=== PATIENT | male | born 1965 | race Two or more races ===

== ENCOUNTER 2016-08-12 12:19 | Emergency (ER) | payer OTHER ==
--- NOTE | ~2016-08-12 | CR181 ---
[facility] A Service of [facility] RADIOLOGY TEXT RESULTS PATIENT: HORTENCIA TRIMBLE LOCATION: [facility] : 67 UNIT #: [id number] AGE: [address]: Criselda Evans SEX: M ORDER DR: [id number] [facility] [address] [place], [place] [address] [id number] E MR#: [id number] Acc #: [id number] NAME: HORTENCIA TRIMBLE : 1965 SEX: M STUDY DATE/TIME: 08/12/2016 13:50 UNIT: [facility] ROOM: STUDY DESCRIPTION: CR Lumbar Spine 2 or 3 Views Attending Physician: Criselda Evans Pa-C Ordering Physician: Carl Sin A.P.R.N. MEDICAL IMAGING REPORT This report is preliminary unless electronic signature is present EXAM Lumbar spine, 3 views COMPARISON None. INDICATIONS 51-year-old male with low back pain for 4 days. No known injury. FINDINGS There are hypoplastic ribs on the T12 vertebral body. There is levo-curvature of the lumbar spine, perhaps positional or due to muscle spasm. Faint calcium density seen in the left pelvis, possibly reflecting a phlebolith. No subluxation of the lumbar spine. Questionable disc height loss L5-S1, not well evaluated on this exam. IMPRESSION Levo-curvature of the lumbar spine, perhaps positional or reflective of scoliosis. There is also questionable disc height loss L5-S1. Exam is otherwise within normal limits, aside for a left pelvic calcification which may reflect a phlebolith. In an appropriate clinical setting, distal obstructing ureteral calculus cannot be excluded. Please note, the patient has a CT abdomen and pelvis ordered for later today and this would be better evaluated on that study. Dictated by... Romaine Neville M.D. THIS IS AN ELECTRONICALLY VERIFIED REPORT Romaine Neville M.D. at 08/17/2016 8:56 PM BLM/pcl [facility] A Service of [facility] RADIOLOGY TEXT RESULTS PATIENT: HORTENCIA TRIMBLE LOCATION: [facility] : [birth year] UNIT #: [id number] AGE: [address]: Criselda Evans SEX: M ORDER DR: TD: 08/12/2016 15:09 JOB #: [id number] MEDICAL IMAGING REPORT Page 1 of 1 COPY
--- NOTE | ~2016-08-12 | CT2 ---
[facility] A Service of [facility] RADIOLOGY TEXT RESULTS PATIENT: HORTENCIA TRIMBLE LOCATION: [place] : 67 UNIT #: [id number] AGE: [address]: Criselda Evans SEX: M ORDER DR: [id number] [place] [id number] [facility]. [place], [place] [address] [id number] E MR#: [id number] Acc #: [id number] NAME: HORTENCIA TRIMBLE : 1965 SEX: M STUDY DATE/TIME: 08/12/2016 15:21 UNIT: [facility] ROOM: STUDY DESCRIPTION: CT Abd and Pelv W Cont Attending Physician: Criselda Evans Pa-C Ordering Physician: Carl Sin A.P.R.N. Primary Care Physician: No Primary Care Physician MEDICAL IMAGING REPORT This report is preliminary unless electronic signature is present EXAM CT abdomen and pelvis with IV contrast. HISTORY Low back and abdomen pain for [address] exam was performed with one or more of the following radiation dose reduction techniques: automatic exposure control, adjustment of mA and/or kV according to patient size, and iterative reconstruction. FINDINGS CT abdomen and pelvis was performed with IV contrast. CT ABDOMEN. The liver, gallbladder, spleen, pancreas, kidneys, and adrenal glands are normal. No hydronephrosis. No bowel distension. No ascites or inflammatory stranding. Normal caliber abdominal aorta. CT PELVIS. No pelvic mass or fluid collection. Moderate amount of stool in the rectum. No adenopathy or inflammatory stranding. Urinary bladder is unremarkable. IMPRESSION Negative CT abdomen and pelvis with IV contrast. Dictated by... Alonso Paula M.D. [facility] A Service of [facility] RADIOLOGY TEXT RESULTS PATIENT: HORTENCIA TRIMBLE LOCATION: [place] : 67 UNIT #: [id number] AGE: [address]: Criselda Evans SEX: M ORDER DR: THIS IS AN ELECTRONICALLY VERIFIED REPORT Alonso Paula M.D. at 08/12/2016 10:50 PM KAVIN/devin TD: 08/12/2016 18:58 JOB #: [id number] MEDICAL IMAGING REPORT Page 1 of 1 COPY
[2016-08-12 13:52] LABS: URINE SOURCE CLEAN CATCH
[2016-08-12 14:02] LABS: URINE APPEARANCE CLEAR; URINE BILIRUBIN NEG (NEG); URINE BLOOD TRACE (NEG); URINE COLOR DK YELLOW; URINE GLUCOSE NEG (NEG); URINE KETONE TRACE (NEG); URINE LEUKOCYTE ESTERASE NEG (NEG); URINE NITRATE NEG (NEG); URINE PROTEIN NEG (NEG); URINE SPECIFIC GRAVITY 1.029 (1.003-1.035)
[2016-08-12 14:05] LABS: BASOPHIL% 0.4 % (0-2.5); EOSINOPHIL# 0.1 X10e3 (0-0.7); EOSINOPHIL% 1.6 % (0.0-7.0); HEMATOCRIT 45.8 % (38.0-50.0); HEMOGLOBIN 15.5 gm/dL (13.0-16.0); LYMPHOCYTE# 1.3 X10e3 (1.0-3.5); MEAN CELL VOLUME 92.9 FL (83-96); MEAN CORPUSCULAR HEMOGLOBIN 31.4 PG (28-34); MEAN CORPUSCULAR HGB CONC 33.8 g/dL (30-36); MEAN PLATELET VOLUME 8.1 FL (6.5-11.5); MONOCYTE# 0.3 X10e3 (0-1.0); MONOCYTE% 5.6 % (3.0-12.0); NEUTROPHIL# 4.1 X10e3 (1.5-7.1); NEUTROPHIL% 69.4 % (40-75); PLATELET COUNT 189 X10e3 (140-420); RED BLOOD COUNT 4.93 X10e (3.90-5.60); RED CELL DISTRIBUTION WIDTH 13.6 % (11.0-15.5); WHITE BLOOD COUNT 5.8 X10e3 (4.0-10.5)
[2016-08-12 14:05] LABS: URBCS1 AUWI 0-2 /[HPF] (0-2); URINE BACTERIA AUWI NEG (NEGATIVE); URINE SQUAMOUS EPITHELIAL CELL NONE SEEN /[HPF]; UWBCS1 AUWI 0-2 (0-5)
[2016-08-12 14:09] LABS: DIFF IND NO
[2016-08-12 14:11] LABS: CULTURE INDICATED? NO
[2016-08-12 14:27] LABS: ALBUMIN SERUM 4.5 g/dL (3.5-5.0); BILIRUBIN,TOTAL 0.9 mg/dL (0.2-2.0); BUN/CREATININE RATIO 12.22; CALCIUM SERUM 9.1 mg/dL (8.4-10.2); CREATININE SERUM 0.9 mg/dL (0.6-1.4); GLOM FILT RATE Estimated 99.2 mL/min (>60); POTASSIUM 3.7 mmol/L (3.5-5.1); PROTEIN TOTAL SERUM 8.3 g/dL (6.0-8.3)
== END 2016-08-12 18:00 | disposition home or self-care (01) ==
LOC: CED 12:19 → CFTX 12:19
PROVIDERS: Nurse Practitioner
DX: S39.012A Strain of muscle, fascia and tendon of lower back, initial encounter (principal); X58.XXXA Exposure to other specified factors, initial encounter; Y92.9 Unspecified place or not applicable
CPT/HCPCS: 36415; 72100; 74177; 80053; 81003; 85025; 96361; 96374; 99284; J1885; Q9967